=== PATIENT | female | born 1960 | race Caucasian/White ===

== ENCOUNTER 2017-03-14 00:19 | Day surgery (SDC) | payer BC ==
[~2017-03-14 00:19] MED LIST: GABA600 PO; IBUP800 PO; NAPR500 PO; ONDA8 PO; Percocet 5-3251 EACH PO; VERA120 PO
== END 2017-03-14 10:52 | disposition home or self-care (01) ==
LOC: ATC 00:19
DX: Z45.2 Encounter for adjustment and management of vascular access device (principal); C49.22 Malignant neoplasm of connective and soft tissue of left lower limb, including hip
CPT/HCPCS: 96523; J1642

== ENCOUNTER 2017-04-14 11:06 | Emergency (ER) | payer BC ==
[~2017-04-14] VITALS: Ht 165.1 cm; Wt 106.6 kg
[2017-04-14] MEDS ORDERED: ARGINAID POWDE1 EACH PO (11:45)
[2017-04-14] MEDS ORDERED: MORP30ER PO ×2 (11:46→12:13)
[2017-04-14] MEDS ORDERED: Hair, Skin & N1 EACH PO (11:47)
[2017-04-14] MEDS ORDERED: DOCU100 PO (12:01)
[2017-04-14] MEDS ORDERED: ASPI325EC PO (12:01)
[2017-04-14] MEDS ORDERED: MORP60ER PO (12:02)
[2017-04-14] MEDS ORDERED: Oxycodone HCl20 M1 PO (12:04)
[2017-04-14] MEDS ORDERED: ACET325 PO (12:05)
[2017-04-14] MEDS ORDERED: BACL10 PO (12:07)
[2017-04-14] MEDS ORDERED: FENTANYL1 EAC1 TOP (12:08)
[2017-04-14] MEDS ORDERED: Suppository1 EACH PR (12:10)
[2017-04-14] MEDS ORDERED: MELA3 PO (12:11)
[2017-04-14] MEDS ORDERED: FURO20 PO (12:11)
[2017-04-14] MEDS ORDERED: Milk Of Ma400 MG/5 M PO (12:12)
[2017-04-14] MEDS ORDERED: ALUM-MAG HYDRO360 ML PO (12:14)
[2017-04-14] MEDS ORDERED: OXYC5 PO (12:16)
[2017-04-14 12:21] LABS: Hematocrit 26.3 % (33.0-51.0); Hemoglobin 8.2 g/dL (11.5-16.0); Mean Corpuscular HGB 27.6 pg (26.0-34.0); Mean Corpuscular HGB Conc 31.2 g/dL (31.5-36.5); Mean Corpuscular Volume 89 fL (80-100); Mean Platelet Volume 9.5 fL (9.1-12.4); Platelet Count 526 K/mm3 (150-400); RDW Coefficient Variation 15.5 % (11.7-14.2); RDW Standard Deviation 50.1 fL (35.1-46.3); Red Blood Cell Count 2.97 M/mm3 (3.80-5.20); White Blood Cell Count 17.85 K/mm3 (4.00-11.30)
[2017-04-14 12:22] LABS: Anion Gap 9 mmol/L (6-16); Blood Urea Nitrogen 9 mg/dL (8-24); Bun/Creatinine Ratio 13.9 (12.0-20.0); CO2, Blood 26 mmol/L (21-32); Calcium, Blood 8.2 mg/dL (8.5-10.1); Chloride, Blood 100 mmol/L (98-108); Creatinine, Blood 0.65 mg/dL (0.40-1.00); Glomerular Filtration Rate >60 (60-); Glucose, Blood 119 mg/dL (70-99); Potassium, Blood 3.7 mmol/L (3.5-5.5); Sodium, Blood 135 mmol/L (136-145)
[2017-04-14 13:12] LABS: BAND PERCENT MAN 3 % (0-8); BASOPHILS PERCENT MAN 0 % (0-2); EOSINOPHILS PERCENT MAN 0 % (0-6); LYMPHOCYTES ABSOLUTE MAN 0.17 K/mm3 (0.84-5.20); LYMPHOCYTES PERCENT MAN 1 % (21-46); MONOCYTES ABSOLUTE MAN 0.71 K/mm3 (0.16-1.47); MONOCYTES PERCENT MAN 4 % (4-13); NEUTROPHILS ABSOLUTE MAN 16.95 K/mm3 (1.96-9.15); SEG NEUTROPHILS PERCENT MAN 92 % (41-73); TOTAL CELLS COUNTED 100
== END 2017-04-14 16:46 | disposition home or self-care (01) ==
LOC: ER 11:06
PROVIDERS: Emergency Medicine
DX: Z48.817 Encounter for surgical aftercare following surgery on the skin and subcutaneous tissue (principal); I10 Essential (primary) hypertension; Z88.8 Allergy status to other drugs, medicaments and biological substances; Z79.899 Other long term (current) drug therapy; Z79.82 Long term (current) use of aspirin; Z98.51 Tubal ligation status
CPT/HCPCS: 36415; 73701; 80048; 83605; 85025; 87040; 96374; 96375; 99284; J1170; J2405; Q9967

== ENCOUNTER 2017-04-14 20:38 | Emergency (ER) | payer BC ==
[~2017-04-14] VITALS: Ht 165.1 cm; Wt 106.6 kg
[~2017-04-14 20:38] MED LIST changes: +ACET325 PO; +ALUM-MAG HYDRO360 ML PO; +ARGINAID POWDE1 EACH PO; +ASPI325EC PO; +BACL10 PO; +DOCU100 PO; +FENTANYL1 EAC1 TOP; +FURO20 PO; +Hair, Skin & N1 EACH PO; +MELA3 PO; +MORP30ER PO; +MORP60ER PO; +Milk Of Ma400 MG/5 M PO; +OXYC5 PO; +Oxycodone HCl20 M1 PO; +Suppository1 EACH PR
[2017-04-14 21:21] LABS: BASOPHILS ABSOLUTE AUTO 0.04 K/mm3 (0.00-0.23); BASOPHILS PERCENT AUTO 0 % (0-2); EOSINOPHILS ABSOLUTE AUTO 0.01 K/mm3 (0.00-0.68); EOSINOPHILS PERCENT AUTO 0 % (0-6); Hemoglobin 7.5 g/dL (11.5-16.0); IMMATURE GRAN ABSOLUTE AUTO 0.11 K/mm3 (0.00-0.10); IMMATURE GRAN PERCENT AUTO 1 % (0-1); LYMPHOCYTES ABSOLUTE AUTO 1.18 K/mm3 (0.84-5.20); LYMPHOCYTES PERCENT AUTO 7 % (21-46); MONOCYTES ABSOLUTE AUTO 0.67 K/mm3 (0.16-1.47); MONOCYTES PERCENT AUTO 4 % (4-13); Mean Corpuscular HGB 27.3 pg (26.0-34.0); Mean Corpuscular HGB Conc 31.3 g/dL (31.5-36.5); Mean Corpuscular Volume 87 fL (80-100); Mean Platelet Volume 9.5 fL (9.1-12.4); NEUTROPHILS ABSOLUTE AUTO 14.85 K/mm3 (1.96-9.15); NEUTROPHILS PERCENT AUTO 88 % (41-73); Platelet Count 478 K/mm3 (150-400); RDW Coefficient Variation 15.6 % (11.7-14.2); RDW Standard Deviation 50.4 fL (35.1-46.3); Red Blood Cell Count 2.75 M/mm3 (3.80-5.20); White Blood Cell Count 16.86 K/mm3 (4.00-11.30)
[2017-04-14 21:40] LABS: Alanine Aminotransfer (ALT/SGP 27 U/L (12-78); Albumin, Blood 1.9 g/dL (3.4-5.0); Albumin/Globulin Ratio 0.5 (0.8-1.8); Alk Phos 134 U/L (50-136); Anion Gap 10 mmol/L (6-16); Aspartate Aminotrans (AST/SGOT 25 U/L (12-37); Bilirubin, Total 1.2 mg/dL (0.1-1.0); Blood Urea Nitrogen 11 mg/dL (8-24); Bun/Creatinine Ratio 16.1 (12.0-20.0); CO2, Blood 26 mmol/L (21-32); Chloride, Blood 99 mmol/L (98-108); Creatinine, Blood 0.68 mg/dL (0.40-1.00); Globulin, Blood 4.1 g/dL (2.2-4.0); Glomerular Filtration Rate >60 (60-); Glucose, Blood 101 mg/dL (70-99); Potassium, Blood 3.6 mmol/L (3.5-5.5); Sodium, Blood 135 mmol/L (136-145)
[2017-04-14 22:48] LABS: Source, Urine Clean Catch
[2017-04-14 22:55] LABS: Blood, Urine Neg (Neg); Glucose Qualitative, Urine Neg (Neg); Ketones, Urine 2+ (Neg); Leukocyte Esterase, Urine Neg (Neg); Nitrite, Urine Neg (Neg); Protein, Urine 1+ (Neg); Urobilinogen, Urine 4+ (Normal); pH, Urine 6.5 (5.0-8.0)
[2017-04-14 23:19] LABS: Appearance, Urine Clear (Clear); Bilirubin, Urine 1+ (Neg); Color, Urine Orange (P-Yellow)
== END 2017-04-15 01:34 | disposition short-term general hospital (02) ==
LOC: ER 20:38
PROVIDERS: Emergency Medicine
DX: L03.116 Cellulitis of left lower limb (principal); A41.9 Sepsis, unspecified organism; Z88.8 Allergy status to other drugs, medicaments and biological substances; Z79.899 Other long term (current) drug therapy; Z79.82 Long term (current) use of aspirin
CPT/HCPCS: 36415; 71046; 73701; 80048; 80053; 83605; 85025; 87040; 96361; 96365; 96368; 96374; 96375; 99284; 99285; J1170; J2405; J2543; J3010; J3370; J7030; J7050; Q9967

== ENCOUNTER 2018-11-03 13:55 | Emergency (ER) | payer BC ==
[~2018-11-03] VITALS: Ht 165.1 cm; Wt 106.6 kg
[2018-11-03 14:38] LABS: BASOPHILS ABSOLUTE AUTO 0.07 K/mm3 (0.00-0.23); BASOPHILS PERCENT AUTO 1 % (0-2); EOSINOPHILS PERCENT AUTO 3 % (0-6); Hematocrit 48.8 % (33.0-51.0); Hemoglobin 15.8 g/dL (11.5-16.0); IMMATURE GRAN ABSOLUTE AUTO 0.02 K/mm3 (0.00-0.10); IMMATURE GRAN PERCENT AUTO 0 % (0-1); LYMPHOCYTES ABSOLUTE AUTO 2.12 K/mm3 (0.84-5.20); LYMPHOCYTES PERCENT AUTO 26 % (21-46); MONOCYTES PERCENT AUTO 8 % (4-13); Mean Corpuscular HGB 29.6 pg (26.0-34.0); Mean Corpuscular HGB Conc 32.4 g/dL (31.5-36.5); Mean Corpuscular Volume 92 fL (80-100); Mean Platelet Volume 10.3 fL (9.1-12.4); NEUTROPHILS ABSOLUTE AUTO 5.03 K/mm3 (1.96-9.15); NEUTROPHILS PERCENT AUTO 63 % (41-73); Platelet Count 234 K/mm3 (150-400); RDW Coefficient Variation 13.3 % (11.7-14.2); RDW Standard Deviation 45.6 fL (35.1-46.3); Red Blood Cell Count 5.33 M/mm3 (3.80-5.20); White Blood Cell Count 8.04 K/mm3 (4.00-11.30)
[2018-11-03 14:57] LABS: Alanine Aminotransfer (ALT/SGP 26 U/L (12-78); Albumin, Blood 3.8 g/dL (3.4-5.0); Albumin/Globulin Ratio 0.9 (0.8-1.8); Alk Phos 117 U/L (50-136); Anion Gap 8 mmol/L (6-16); Aspartate Aminotrans (AST/SGOT 21 U/L (12-37); Bilirubin, Total 0.3 mg/dL (0.1-1.0); Blood Urea Nitrogen 21 mg/dL (8-24); Bun/Creatinine Ratio 27.1 (12.0-20.0); CO2, Blood 25 mmol/L (21-32); Calcium, Blood 9.7 mg/dL (8.5-10.1); Chloride, Blood 108 mmol/L (98-108); Creatinine, Blood 0.77 mg/dL (0.40-1.00); Globulin, Blood 4.2 g/dL (2.2-4.0); Glomerular Filtration Rate >60 (60-); Glucose, Blood 100 mg/dL (70-99); Sodium, Blood 141 mmol/L (136-145); Troponin I <0.015 ng/mL (0.000-0.040)
== END 2018-11-03 17:23 | disposition home or self-care (01) ==
LOC: ER 13:55
PROVIDERS: Emergency Medicine
DX: R00.0 Tachycardia, unspecified (principal); I10 Essential (primary) hypertension; Z88.8 Allergy status to other drugs, medicaments and biological substances; Z79.82 Long term (current) use of aspirin; Z79.891 Long term (current) use of opiate analgesic; Z79.899 Other long term (current) drug therapy
CPT/HCPCS: 36415; 71260; 80053; 84484; 85025; 93005; 93010; 99285-25; Q9967

== ENCOUNTER 2019-05-06 00:20 | Day surgery (SDC) | payer BC | END 2019-05-06 23:16 | disposition home or self-care (01) | LOC: ATC 00:20 | DX: C49.22 Malignant neoplasm of connective and soft tissue of left lower limb, including hip (principal); I10 Essential (primary) hypertension; Z88.8 Allergy status to other drugs, medicaments and biological substances; Z79.82 Long term (current) use of aspirin; Z79.899 Other long term (current) drug therapy; Z87.891 Personal history of nicotine dependence ==

== ENCOUNTER 2022-03-23 12:40 | Emergency (ER) | payer BC ==
[~2022-03-23] VITALS: Ht 167.6 cm; Wt 113.4 kg
[2022-03-23 13:17] LABS: BASOPHILS ABSOLUTE AUTO 0.06 K/mm3 (0.00-0.23); BASOPHILS PERCENT AUTO 1 % (0-2); EOSINOPHILS ABSOLUTE AUTO 0.15 K/mm3 (0.00-0.68); EOSINOPHILS PERCENT AUTO 3 % (0-6); Hematocrit 44.1 % (33.0-51.0); Hemoglobin 14.6 g/dL (11.5-16.0); IMMATURE GRAN ABSOLUTE AUTO 0.01 K/mm3 (0.00-0.10); IMMATURE GRAN PERCENT AUTO 0 % (0-1); LYMPHOCYTES PERCENT AUTO 27 % (21-46); MONOCYTES PERCENT AUTO 9 % (4-13); Mean Corpuscular HGB 30.2 pg (26.0-34.0); Mean Corpuscular HGB Conc 33.1 g/dL (31.5-36.5); Mean Corpuscular Volume 91 fL (80-100); Mean Platelet Volume 9.5 fL (9.1-12.4); NEUTROPHILS ABSOLUTE AUTO 3.29 K/mm3 (1.96-9.15); NEUTROPHILS PERCENT AUTO 60 % (41-73); Platelet Count 321 K/mm3 (150-400); RDW Coefficient Variation 13.1 % (11.7-14.2); RDW Standard Deviation 43.8 fL (35.1-46.3); Red Blood Cell Count 4.84 M/mm3 (3.80-5.20); White Blood Cell Count 5.51 K/mm3 (4.00-11.30)
[2022-03-23 13:29] LABS: Albumin, Blood 3.8 g/dL (3.4-5.0); Bilirubin, Total 0.3 mg/dL (0.1-1.0); Bun/Creatinine Ratio 18.3 (12.0-20.0); Calcium, Blood 9.3 mg/dL (8.5-10.1); Creatinine, Blood 1.04 mg/dL (0.40-1.00); Globulin, Blood 3.9 g/dL (2.2-4.0); Total Protein, Blood 7.7 g/dL (6.4-8.2)
[2022-03-23 13:38] LABS: Influenza A, PCR NEGATIVE (NEGATIVE); Influenza B, PCR NEGATIVE (NEGATIVE); Resp Syncytial Virus, PCR NEGATIVE (NEGATIVE); SARS-Cov-2 (COVID-19) PCR, MMC NEGATIVE (NEGATIVE)
[2022-03-23] MEDS ORDERED: BENZ100A PO (16:27)
[2022-03-23] MEDS ORDERED: PRINIVIL5 M1 PO (16:27)
[2022-03-23] MEDS ORDERED: ALBU90OI INH (16:27)
== END 2022-03-23 16:49 | disposition home or self-care (01) ==
LOC: ER 12:40
PROVIDERS: Student in an Organized Health Care Education/Training Program
DX: J40 Bronchitis, not specified as acute or chronic (principal); I10 Essential (primary) hypertension; R41.0 Disorientation, unspecified; Z79.899 Other long term (current) drug therapy; Z88.8 Allergy status to other drugs, medicaments and biological substances; Z79.52 Long term (current) use of systemic steroids
CPT/HCPCS: 0241U; 36415; 71046; 80053; 84484; 85025; 93005; 93010; A9270

== ENCOUNTER 2023-01-16 07:57 | Day surgery (SDC) | payer BC ==
[2023-01-16] VITALS (10 sets, daily range): BP systolic 126–148; BP diastolic 76–93
[~2023-01-16] VITALS: Ht 167.6 cm; Wt 109.4 kg
[~2023-01-16 07:57] MED LIST changes: +ALBU90OI INH; +Acetaminophen650 M1 PO; +BENZ100A PO; +CONSTULOSE10 GM/155; +Effexor Xr37.5 MG PO; +GABA300 PO; -GABA600 PO; +LORATADINE10 M1 PO; +PRINIVIL5 M1 PO; +RIZATRIPTAN10 MG PO; +TEMA7.5 PO
[2023-01-16] MEDS ORDERED: Celexa10 MG PO (08:33)
[2023-01-16] MEDS ORDERED: HYDPAM25 PO (08:34)
[2023-01-16] MEDS ORDERED: TRAZ100 PO (08:34)
--- NOTE | 2023-01-16 09:02 | NUR ---
Wheelchaired into Day Surgery. History, Chart, Medications and Allergies reviewed before start of procedure. Pre-Op teaching done. Pt verbalizes understanding. Patient States Post-Procedure ride home has been arranged.
--- NOTE | 2023-01-16 11:32 | NUR ---
Patient up to Ambulate independently. Gait steady. Discharge instructions reviewed with patient. Patient verbalizes understanding. Copy given to patient to take home. Discharged via wheelchair to private car for ride home.
== END 2023-01-16 11:33 | disposition home or self-care (01) ==
LOC: ORSCMMR 07:57 → ORD 09:00 → ORSCMMR 11:33
PROVIDERS: Surgery
PROC: 0FT44ZZ Resection of Gallbladder, Percutaneous Endoscopic Approach (ICD-10-PCS; principal; 2023-01-16 09:00)
DX: K80.10 Calculus of gallbladder with chronic cholecystitis without obstruction (principal); M79.7 Fibromyalgia; G47.33 Obstructive sleep apnea (adult) (pediatric); I10 Essential (primary) hypertension; Z79.899 Other long term (current) drug therapy; Z87.891 Personal history of nicotine dependence
CPT/HCPCS: 88304; 93005; 93010; A9270; J1100; J2250; J2405; J2704; J2710; J3010; J7120

== ENCOUNTER 2024-02-05 06:47 | Day surgery (SDC) | payer BC ==
[~2024-02-05] VITALS: Ht 162.5 cm; Wt 113.3 kg
[2024-02-05] VITALS (7 sets, daily range): BP systolic 105–125; BP diastolic 62–80
[~2024-02-05 06:47] MED LIST changes: +ACYC400 PO; +Bentyl20 MG PO; +CeFAZolin Sodium 2,000 MG in NS 100 ML IV SCH; +Celexa10 MG PO; +HYDPAM25 PO; +Lactated Ringer's 1,000 ML IV SCH; +METO5A PO; +NURTEC ODT75 MG PO; +Robaxin750 MG PO; +TOPI100 PO; +TRAZ100 PO
[2024-02-05] MEDS ORDERED: Bupivacaine 0.5% HCl 5 MG/ML 30MLVIAL ONE (07:05)
[2024-02-05] MEDS ORDERED: DULOXETINE HCL60 M1 PO (07:13)
[2024-02-05] MEDS ORDERED: MUPIROCIN2210 TOP (07:14)
[2024-02-05] MEDS ORDERED: FentaNYL Citrate 50 MCG/ML 2 ML Injection ONE (07:22)
[2024-02-05] MEDS ORDERED: propofoL 20 ML IV ONE (07:22)
[2024-02-05] MEDS ORDERED: Lidocaine HCl 2% 20 ML MDV ONE (07:22)
[2024-02-05] MEDS ORDERED: Midazolam HCl 1MG / ML 2ML Vial IV ONE (07:25)
--- NOTE | 2024-02-05 07:35 | NUR ---
History, Chart, Medications and Allergies reviewed before start of procedure. Pre-Op teaching done. Pt verbalizes understanding. Patient confirms NPO status and agrees with scheduled surgery. Patient reports completing Chlorhexadine shower X2 prior to admission to hospital. Surgical site prepped with 2% Chlorhexidine cloth wipe. Patient States Post-Procedure ride home has been arranged. Eye glasses taken to PACU; walking cane & purse sent home with niece.
[2024-02-05] MEDS ORDERED: Ketorolac Tromethamine 30mg Vial ONE (07:50)
[2024-02-05] MEDS ORDERED: HYDROcodone 5-APAP 325 TAB PO PRN (08:20)
--- NOTE | 2024-02-05 08:57 | NUR ---
DISCHARGE PT A&OX4/VSS/RA/C&DBS, RODNEY PO H20, DENIES PAIN&NAUSEA, RBR EXOFIN CDI, DC INS PROVIDED/UNDERSTOOD BY PT, IV DC'D. LEFT VIA WC WITH DC VOL WITH ALL PERSONAL POSSESSIONS TO GO HOME WITH AYDEE/HAYLEE.
== END 2024-02-05 23:00 | disposition home or self-care (01) ==
LOC: ORSCMMR 06:47 → ORD 07:30 → ORSCMMR 23:00
PROVIDERS: Surgery
PROC: 0JB60ZX Excision of Chest Subcutaneous Tissue and Fascia, Open Approach, Diagnostic (ICD-10-PCS; principal; 2024-02-05 07:30)
DX: L72.9 Follicular cyst of the skin and subcutaneous tissue, unspecified (principal); I10 Essential (primary) hypertension; G47.33 Obstructive sleep apnea (adult) (pediatric); Z79.899 Other long term (current) drug therapy; G40.909 Epilepsy, unspecified, not intractable, without status epilepticus; Z87.891 Personal history of nicotine dependence; E66.01 Morbid (severe) obesity due to excess calories; Z68.41 Body mass index [BMI] 40.0-44.9, adult
CPT/HCPCS: 82947; 88305; J0690; J1885; J2250; J2704; J3010; J7120